=== PATIENT | female | born 1990 | race Caucasian/White ===

== ENCOUNTER → 2017-01-21 | Outpatient (CLI) | payer BC, OTHER ==
[~2017-01-21] MED LIST: AMOX1TAB43 PO; IBUP-1050 PO; MTR500 PO
== END | disposition home or self-care (01) ==
LOC: C.PAPS 14:54
PROVIDERS: ATTEND Obstetrics & Gynecology
DX: Z01.419 Encounter for gynecological examination (general) (routine) without abnormal findings (principal)

== ENCOUNTER → 2017-03-03 | Outpatient (CLI) | payer BC | END | disposition home or self-care (01) | LOC: C.LAB1850 11:43 | PROVIDERS: ATTEND Obstetrics & Gynecology | DX: Z32.01 Encounter for pregnancy test, result positive (principal); Z34.90 Encounter for supervision of normal pregnancy, unspecified, unspecified trimester ==

== ENCOUNTER → 2017-03-21 | Outpatient (CLI) | payer BC ==
[2017-03-21 16:31] LABS: BASO % 0.3 %; BASO ABS # 0.03 K/uL (0-0.2); COMPLETE YES; EOS % 0.7 %; HEMATOCRIT 38.5 % (37-47); IG% 0.2 %; LYMPH % 24.4 %; LYMPH ABS # 2.84 K/uL (1.2-3.4); MEAN CELL VOLUME 88.9 fL (80-100); MEAN CORPUSCULAR HGB CONC 33.8 g/dl (32-36); MEAN PLATELET VOLUME 12.1 fL (7.4-10.4); MONO % 5.5 %; NEUT % 68.9 %; PLATELET COUNT 295 K/uL (130-400); RED BLOOD COUNT 4.33 M/uL (4.2-5.4); WHITE BLOOD COUNT 11.65 K/uL (4.8-10.8)
[2017-03-21 18:25] LABS: URINE APPEARANCE CLEAR (CLEAR); URINE BILIRUBIN NEG (NEG); URINE COLOR YELLOW; URINE EPITHELIAL CELL AUTO >30 /lpf (0-5); URINE NITRITE NEG (NEG); URINE SPECIFIC GRAVITY 1.011 (1.000-1.030); UROBILINOGEN NEG (NEG)
[2017-03-21 18:31] LABS: MANUAL MICROSCOPIC REQUIRED? NO; REVIEW REQ? NO
[2017-03-25 02:32] LABS: CHLAMYDIA TRACH RNA*** NOT DETECTED (NOT DETECTED); GC (NEIS GONORRHOEAE)RNA** NOT DETECTED (NOT DETECTED)
== END | disposition home or self-care (01) ==
LOC: C.LAB1850 15:04
PROVIDERS: ATTEND Obstetrics & Gynecology
DX: Z34.90 Encounter for supervision of normal pregnancy, unspecified, unspecified trimester (principal)

== ENCOUNTER → 2017-05-07 | Outpatient (CLI) | payer BC ==
[2017-05-07 17:26] LABS: GTGD 50 Grams
== END | disposition home or self-care (01) ==
LOC: C.LAB1850 14:09
PROVIDERS: ATTEND Obstetrics & Gynecology
DX: Z34.01 Encounter for supervision of normal first pregnancy, first trimester (principal)

== ENCOUNTER → 2017-05-14 | Outpatient (CLI) | payer BC | END | disposition home or self-care (01) | LOC: C.LAB1850 07:29 | PROVIDERS: ATTEND Obstetrics & Gynecology | DX: O28.1 Abnormal biochemical finding on antenatal screening of mother (principal) ==

== ENCOUNTER → 2017-07-21 | Outpatient (CLI) | payer BC | END | disposition home or self-care (01) | LOC: C.LAB1850 09:28 | PROVIDERS: ATTEND Obstetrics & Gynecology | DX: O28.1 Abnormal biochemical finding on antenatal screening of mother (principal); Z3A.00 Weeks of gestation of pregnancy not specified ==

== ENCOUNTER → 2017-07-23 | Outpatient (CLI) | payer BC ==
[2017-07-23 17:16] LABS: URINE APPEARANCE CLEAR (CLEAR); URINE BILIRUBIN NEG (NEG); URINE COLOR YELLOW; URINE NITRITE NEG (NEG); URINE SPECIFIC GRAVITY 1.008 (1.000-1.030); UROBILINOGEN NEG (NEG)
[2017-07-23 17:21] LABS: MANUAL MICROSCOPIC REQUIRED? NO; REVIEW REQ? YES
== END ==
LOC: C.LABSPEC 16:36
PROVIDERS: ATTEND Obstetrics & Gynecology
DX: Z34.82 Encounter for supervision of other normal pregnancy, second trimester (principal)

== ENCOUNTER → 2017-07-23 | Outpatient (CLI) | payer BC ==
[2017-07-23 16:18] LABS: HEMATOCRIT 35.7 % (37-47)
== END ==
LOC: C.LAB1850 14:38
PROVIDERS: ATTEND Obstetrics & Gynecology
DX: Z34.82 Encounter for supervision of other normal pregnancy, second trimester (principal)

== ENCOUNTER → 2017-09-15 | Outpatient (CLI) | payer BC | END | disposition home or self-care (01) | LOC: C.LABSPEC 13:33 | PROVIDERS: ATTEND Obstetrics & Gynecology | DX: Z34.83 Encounter for supervision of other normal pregnancy, third trimester (principal) ==

== ENCOUNTER 2017-10-07 15:11 | Inpatient (IN) | payer BC ==
[~2017-10-07] VITALS: Ht 167.6 cm; Wt 121.8 kg
[2017-10-07] MEDS ORDERED: LACTATED RINGER'S 1000ML 1,000 ML IV PRN (15:28)
[2017-10-07] MEDS ORDERED: LACTATED RINGER'S 1000ML 1,000 ML IV SCH (15:28)
[2017-10-07] MEDS ORDERED: PRENTAB26 PO (15:33)
[2017-10-07 15:57] VITALS: Ht 167.6 cm; Wt 121.8 kg
[2017-10-07] MEDS ORDERED: OXYTOCIN 30 UNITS/500ML NSS IV ONE (16:00)
[2017-10-07 16:07] LABS: HEMATOCRIT 37.7 % (37-47); HEMOGLOBIN 12.9 g/dL (12.0-16.0); MEAN CELL VOLUME 87.1 fL (80-100); MEAN CORPUSCULAR HEMOGLOBIN 29.8 pg (25-34); MEAN CORPUSCULAR HGB CONC 34.2 g/dl (32-36); MEAN PLATELET VOLUME 11.6 fL (7.4-10.4); PLATELET COUNT 245 K/uL (130-400); RED CELL DISTRIBUTION WIDTH CV 14.1 % (11.5-14.5); RED CELL DISTRIBUTION WIDTH SD 44.3 fL (36.4-46.3); WHITE BLOOD COUNT 22.73 K/uL (4.8-10.8)
[2017-10-07] MEDS ORDERED: SUPERCREAM 0.870 % 15GM JAR EXT PRN (16:30)
[2017-10-07] MEDS ORDERED: OXYCODONE/ACETAMINOPHEN 5-325 TAB PO PRN (16:30)
[2017-10-07] MEDS ORDERED: LANOLIN OINT EXT PRN (16:30)
[2017-10-07] MEDS ORDERED: OXYTOCIN 30 UNITS/500ML NSS IV PRN (16:30)
[2017-10-07] MEDS ORDERED: HYDROCORTISONE ACETATE 25 MG SUPP PR PRN (16:30)
[2017-10-07] MEDS ORDERED: BENZOCAINE 20% AER SPR 82.5 GM CAN EXT PRN (16:30)
[2017-10-07] MEDS: IBUPROFEN 600 MG TAB PO PRN (16:53)
[2017-10-07 20:00] VITALS: BP 135/84; PULSE 76; TEMP 36.7
[2017-10-07] MEDS: DOCUSATE SODIUM 100 MG CAP PO SCH (20:14)
--- NOTE | 2017-10-07 21:13 | DELIVERY SUMMARY ---
DATE OF OPERATION: 10/07/2017 PREDELIVERY DIAGNOSES: 1. A 27-year-old G2, P1-0-0-1 at 39 weeks 4 days. 2. Spontaneous labor. POSTDELIVERY DIAGNOSES: Same. PROCEDURE: Spontaneous vaginal delivery and repair of first degree perineal laceration. ESTIMATED BLOOD LOSS: 300 mL. FINDINGS: Viable female , Apgars 8 and 9, weight pending. Please see nursery records. DESCRIPTION OF DELIVERY: The patient presented to labor and delivery with regular contractions every few minutes. Upon arrival to labor and delivery she was 8 cm dilated. heart tracing was category 1 with regular contractions every 2 minutes. She progressed to complete without epidural anesthesia. Malave then began to push. She spontaneously vaginally delivered a viable female from the cephalic presentation. The head delivered in the left occiput anterior position. The head delivered, classic turtle sign was noted at the head and a shoulder dystocia was diagnosed. It took approximately 70 seconds from delivery of head to delivery of anterior shoulder. The patient's legs were placed in McRobert's position. The head of the bed was taken down to level and suprapubic pressure was applied and the anterior shoulder then began to deliver. The anterior shoulder was delivered, followed by the posterior shoulder, followed by the body. The baby was placed on mother's abdomen in order to clamp and cut the cord and the baby was immediately passed to the pediatric team for evaluation. Upon this transfer while baby was being moved from mother to the bassinet, a spontaneous cry was heard. The cord segment was obtained for cord gases. Cord blood was obtained. The placenta was delivered spontaneously intact with a 3-vessel cord. Pitocin was given. The uterus became firm. Uterus and vagina were swept of all clots and debris. The cervix, vagina and perineum were inspected and a first degree perineal laceration was noted. Lidocaine was used as a local anesthetic for the repair and this was repaired in a standard fashion with 3-0 Vicryl in a running stitch. Excellent hemostasis was observed. The mother and baby tolerated the delivery well and are recovering in the room in stable and good condition. Sponge, instrument and needle counts were correct x3 at the conclusion of the case. I attest to the content of the Intraoperative Record and any orders documented therein. Any exception s are noted below.
[2017-10-08 00:30] VITALS: BP 138/85; PULSE 77; TEMP 36.9
[2017-10-08 03:55] VITALS: BP 120/81; PULSE 76; TEMP 36.6
--- NOTE | 2017-10-08 06:41 | Progress Note ---
Subjective Oct 08, 2017. Subjective conversation w/ patient, physical exam, lab review Ambulation: ambulating normally Voiding: no voiding problems Passing Gas: Yes Diet Tolerance: Regular Diet Lochia: Moderate Objective Vital Signs Date Time Temp Pulse Resp B/P (MAP) Pulse Ox O2 Delivery O2 Flow Rate FiO2 10/08/17 03:55 36.6 76 18 120/81 (94) Room Air 10/08/17 00:30 36.9 77 18 138/85 (102) Room Air 10/08/17 00:30 Room Air 10/07/17 20:00 36.7 76 18 135/84 (101) Room Air Physical Exam General Appearance: WELL-APPEARING Abdomen: non tender Fundus: Firm Extremities: no calf tenderness Laboratory Results Last 24 Hours Test 10/07/17 15:46 10/08/17 04:44 White Blood Count 22.73 K/uL Red Blood Count 4.33 M/uL Hemoglobin 12.9 g/dL Hematocrit 37.7 % Mean Corpuscular Volume 87.1 fL Mean Corpuscular Hemoglobin 29.8 pg Mean Corpuscular Hemoglobin Concent 34.2 g/dl RDW Standard Deviation 44.3 fL RDW Coefficient of Variation 14.1 % Platelet Count 245 K/uL Mean Platelet Volume 11.6 fL Assessment and Plan Post- Day#: 1 Continue Routine Care: Patient doing well ambulating tolerating oral diet no extremity pain
[2017-10-08 07:24] LABS: HEMATOCRIT 34.8 % (37-47); HEMOGLOBIN 11.6 g/dL (12.0-16.0)
[2017-10-08] MEDS: DOCUSATE SODIUM 100 MG CAP PO SCH ×2 (07:55→19:51)
[2017-10-08 08:15] VITALS: BP 114/76; PULSE 80; TEMP 36.7
[2017-10-08 12:46] VITALS: BP 114/77; PULSE 102; TEMP 36.8
[2017-10-08 15:25] VITALS: BP 106/72; PULSE 67; TEMP 36.7
--- NOTE | 2017-10-08 18:45 | Discharge Instructions ---
Discharge Instructions Date of Service Oct 08, 2017. Admission Reason for Admission: R/O Labor Discharge Discharge Diagnosis / Problem: Vaginal Delivery Discharge Goals Goal(s): Routine recovery after delivery Medications Continue Dispensed Medications: supercream, dermaplast, tucks, lansinoh Activity Recommendations Activity Limitations: per Instructions/Follow-up section . Instructions / Follow-Up Instructions / Follow-Up ACTIVITY RECOMMENDATIONS: * Gradual return to full activity over the next 2-3 weeks. * No lifting - nothing heavier than baby over the next 2-3 weeks. * Do not engage in vigorous exercise, sexual activity or sports until cleared by your physician. * Do not drive or operate any motorized equipment until cleared by your physician. * You may shower/bathe daily. MEDICATIONS: For discomfort or pain, you may use Acetaminophen (Tylenol), Ibuprofen (Advil), or Naproxen (Aleve) following the package directions. For constipation you may use Colace following the package directions. BREAST CARE: If you are not breast feeding: * Wear a supportive bra 24 hours a day for one to two weeks. * Avoid stimulating your breasts and nipples as much as possible during the first few weeks after delivery. * When taking a shower, have the warm water hit your back, not breasts. * When your breasts feel full, apply ice packs. Usually three to four times a day helps ease the discomfort. * Take a mild pain medication (Tylenol / Motrin) when you are uncomfortable. If breast feeding: * Use breast milk to lubricate nipples. Lansinoh cream may be used for sore nipples. You do not need to remove cream prior to breast feeding. If using a different brand of cream, check the label for directions regarding removal of cream prior to nursing. * Wear a supportive bra. * If having problems with breasts or breast feeding, call a pre sales technical consultant or your health care provider. EPISIOTOMY CARE: After delivery, if you have an episiotomy (stitches), the following steps will ease discomfort and aid healing. * For the first 24 hours after delivery, place ice packs next to your episiotomy to help reduce swelling. * After the first 24 hour-period, sitz baths, either portable or in the tub, are suggested. A shower with a shower arm sprayed over the episiotomy may be comforting. * Kindra care should be done after each voiding and bowel movement. Squirt warm water from a plastic bottle over the perineum (region of the body between the anus and urinary opening) and pat dry. * Use Dermoplast to ease discomfort. Shake container. [place] directly over the episiotomy. Place a Tucks on a clean sanitary pad next to your episiotomy. SPECIAL CARE INSTRUCTIONS: When you are discharged from the hospital, it is important for you to follow the instructions listed below: * During the first week at home, you should be able to care for yourself and your baby. In addition, the usual light household activities are encouraged. * Limit your activities to the way you feel. Do not try to clean the house or move furniture. Be sensible. * If you actively engage in sports and have done so up until the time of your delivery, you may resume these activities as soon as you feel able. This may take up to one month or even longer. Use good judgment. * Continue to take your vitamins for at least six weeks after the of your baby. * Your diet need not be limited unless you were on a special diet before your delivery. Breast-feeding mothers need around 2500 calories per day and at least 64-80 ounces of fluid per day (8 to 10 glasses). * You should eat foods from the four major food groups. Crash diets or fad diets are to be avoided. Eating lean meats, fresh fruits and vegetables, low-fat dairy products, high fiber foods and a regular exercise program, will help you get back to your pre- weight without putting your health at risk. * Constipation is sometimes a problem after delivery. Take a mild laxative as needed. If breast feeding, Milk of Magnesia is acceptable to use. You may use a suppository or Fleets enema if no episiotomy. * A daily shower or tub bath is suggested. Be sure to thoroughly and gently dry the perineum. * A bloody vaginal discharge will usually continue until around four weeks post . A small amount of bleeding may continue for as long as six weeks. Vaginal discharge changes from the bright red bleeding after delivery to pink then brownish and finally yellowish-pink before becoming white and disappearing. * Bleeding may increase with activity. Your first period may come in 4-8 weeks. If you are breast feeding, your period may be delayed even longer. * [place] (sex) can begin whenever both you and your partner feel comfortable and do not have any form of genital infection. It is recommended that you wait at least six weeks for internal and external healing to occur. If you have questions, please talk to your health care practitioner. A condom should be used to prevent infection and . * Foreplay, gentle intercourse and lubrication is very important the first several times to prevent pain. A water-based lubricant such as K-Y jelly or Astroglide may be used. * If you have RH negative blood and your baby is RH positive, you will receive RHOGAM by injection prior to discharge. The nurse will give you a card to keep with you that has the date and place that you received RHOGAM after delivery. * During your care, you had a Rubella screen done to check for the presence of rubella antibodies in your blood. If your test was negative, you will receive a Rubella vaccine prior to discharge. This vaccine may cause a fever, soreness at the injection site and flu-like symptoms. If these symptoms persist, notify your health care practitioner. is not advised for one month after a Rubella vaccine. * Verbalizes understanding of car seat law as reviewed with patient nursing. * Car Seat hand-out given and reviewed with patient by nursing. * Shaken baby information reviewed with patient by nursing. Call you doctor if: * Heavy bleeding (saturating several pads an hour) or passing clots the size of your fist. * A fever >101 degrees F (38.3 degrees C) on two occasions four hours apart and /or chills. * Unusual pain in the pelvic or vaginal areas. * "Baby Blues" lasting longer than two weeks. If you have any questions or concerns, call your health care practitioner at . FOLLOW UP VISIT: * Please call the office at to schedule a 6 week examination. It is important you keep this appointment. It is important for you to make arrangements for either yearly or twice yearly check-ups thereafter. Current Hospital Diet Patient's current hospital diet: Regular OB Diet Discharge Diet Recommended Diet: Regular Diet Pending Studies Studies pending at discharge: no Medical Emergencies . Who to Call and When: Medical Emergencies: If at any time you feel your situation is an emergency, please call [phone] immediately. . Non-Emergent Contact Non-Emergency issues call your: Primary Care Provider . . "Provider Documentation" section prepared by Giovanni Copeland. . VTE Core Measure Inpt VTE Proph given/why not?: Treatment not indicated
[2017-10-08] MEDS ORDERED: BISACODYL 5 MG TABEC PO SCH (20:00)
[2017-10-08 23:20] VITALS: BP 125/83; PULSE 65; TEMP 36.5
[2017-10-09] MEDS: IBUPROFEN 600 MG TAB PO PRN (03:27)
--- NOTE | 2017-10-09 06:28 | Progress Note ---
Subjective Oct 09, 2017. Subjective conversation w/ patient (Patient seen and examined at the bedside) Ambulation: ambulating normally Voiding: no voiding problems Diet Tolerance: Regular Diet Lochia: Moderate Feeding Type: Breast Feeding Pain: cramping pain relieved by motrin Review of Systems Constitutional: No fever, No chills, No sweats Respiratory: No cough, No shortness of breath Cardiac: No chest pain, No edema Abdomen: No pain, No nausea, No vomiting Objective Vital Signs Date Time Temp Pulse Resp B/P (MAP) Pulse Ox O2 Delivery O2 Flow Rate FiO2 10/08/17 23:20 Room Air 10/08/17 23:20 36.5 65 18 125/83 (97) Room Air 10/08/17 15:28 Room Air 10/08/17 15:25 36.7 67 16 106/72 (83) Room Air 10/08/17 12:46 36.8 102 16 114/77 (89) Room Air 10/08/17 12:46 Room Air 10/08/17 08:15 Room Air 10/08/17 08:15 36.7 80 16 114/76 (89) Room Air Physical Exam General Appearance: WELL-APPEARING, WD/WN, NO APPARENT DISTRESS Respiratory/Chest: chest non-tender, lungs clear, normal breath sounds, no respiratory distress, no accessory muscle use Cardiovascular: regular rate, rhythm, no edema, no gallop, no murmur Abdomen: normal bowel sounds, non tender, soft Fundus: Firm, Non-Tender, Relation to Umbilicus (1 below u) Extremities: normal inspection, no pedal edema, no calf tenderness Laboratory Results Last 24 Hours Test 10/08/17 06:42 Hemoglobin 11.6 g/dL Hematocrit 34.8 % Medications Current Inpatient Medications Medications (Trade) Dose Ordered Sig/Rahel Route Start Time Stop Time Status Last Admin Dose Admin Lactated Ringer's 1,000 ml @ 125 mls/hr Q8H IV 10/07/17 15:28 10/09/17 15:27 Lactated Ringer's 1,000 ml @ 999 mls/hr Q1H1M PRN IV 10/07/17 15:28 11/06/17 15:27 Oxytocin (Pitocin IV) 30 units UD PRN IV 10/07/17 16:30 11/06/17 16:29 Benzocaine (Dermoplast Aero Spr) 1 appln PRN PRN EXT 10/07/17 16:30 11/06/17 16:29 10/07/17 20:12 1 APPLN Cocaine HCl (Supercream 0.870% Cr) BID PRN EXT 10/07/17 16:30 10/21/17 16:29 Hydrocortisone Acetate (Anusol Hc Supp) 25 mg BID PRN [place] 10/07/17 16:30 11/06/17 16:29 Lanolin (Lanolin Oint) PRN PRN EXT 10/07/17 16:30 11/06/17 16:29 Ibuprofen (Motrin Tab) 600 mg Q4H PRN PO 10/07/17 16:30 11/06/17 16:29 10/09/17 03:27 600 MG Oxycodone/ Acetaminophen (Percocet 5-325mg Tab) 1 tab Q4H PRN PO 10/07/17 16:30 10/21/17 16:29 Docusate Sodium (coLACE CAP) 100 mg BID PO 10/07/17 20:00 11/06/17 19:59 10/08/17 19:51 100 MG Assessment and Plan Post- Day#: 2 Continue Routine Care: 27 year old s/p NVD day 2 - pt doing well clinically - O+, GBS -ve and rubella immune - vitals reviewed and wnl - continue to encourage ambulation and - motrin prn for pain - Hgb stable. 12.9 -> 11.6 - review d/c instructions as pt ready for d/c today Resident Physician Supervision Note: I was present with Dr. Copeland during the history and exam. I discussed the case with the resident and agree with the findings and plan as documented in the note. Any exceptions or clarifications are listed here: PPD#2 doing well. Discharge home today. RTO 6w. Documented By: Maggi Tellez Resident Tracking Resident Involvement: Resident Care Provided Care Provided: OB Delivery
[2017-10-09] MEDS: DOCUSATE SODIUM 100 MG CAP PO SCH ×2 (08:00→08:03)
[2017-10-09 08:15] VITALS: BP 132/81; PULSE 64; TEMP 36.4
[2017-10-09 11:55] VITALS: BP_DIAS 81; PULSE 64; TEMP 36.4
== END 2017-10-09 11:56 | disposition home or self-care (01) | DRG 775 ==
LOC: C.LD 15:11 → C.OPB 15:11 → C.LD 15:30 → C.OPB 15:30 → C.LD 16:01 → C.OBG 18:57 → EDSTATUS 10-10 15:15
PROVIDERS: ADMIT Obstetrics & Gynecology; ATTEND Obstetrics & Gynecology
PROC: 10E0XZZ Delivery of Products of Conception, External Approach (ICD-10-PCS; principal; 2017-10-07)
PROC: 0HQ9XZZ Repair Perineum Skin, External Approach (ICD-10-PCS; principal; 2017-10-07)
DX: O70.0 First degree perineal laceration during delivery (principal); O66.0 Obstructed labor due to shoulder dystocia; Z3A.39 39 weeks gestation of pregnancy; Z37.0 Single live birth